=== PATIENT | female | born 2000 | race Two or more races ===

== ENCOUNTER 2022-10-24 04:08 | Emergency (ER) | payer MEDICAID ==
[~2022-10-24] VITALS: Ht 162.6 cm; Wt 62.1 kg
[2022-10-24 04:12] VITALS: BP 128/74
--- NOTE | 2022-10-24 04:16 | NUR ---
TO LOBBY FOLLOWING TRIAGE
[2022-10-24 06:20] VITALS: BP 128/74
--- NOTE | 2022-10-24 06:20 | NUR ---
Patient discharged with v/s stable. Written and verbal after care instructions given and explained. Patient verbalized understanding. Ambulatory with steady gait. All questions addressed prior to discharge. Advised to follow up with PMD.
== END 2022-10-24 06:20 | disposition home or self-care (01) ==
LOC: MED 04:08
DX: B07.0 Plantar wart (principal); J45.909 Unspecified asthma, uncomplicated
CPT/HCPCS: 99281

== ENCOUNTER 2022-12-17 10:31 | Emergency (ER) | payer MEDICAID ==
[~2022-12-17] VITALS: Ht 162.6 cm; Wt 72.6 kg
[2022-12-17 10:43] VITALS: BP 140/82
--- NOTE | 2022-12-17 10:45 | NUR ---
PT AMBULATED TO LOBBY BY BLS. PER EMS, PATIENT REQUESTING RELOCATION ASSISTANCE.
[2022-12-17 12:42] LABS: APPEARANCE,URINE CLEAR (CLEAR); BILIRUBIN,URINE NEGATIVE (NEGATIVE); BLOOD, URINE NEGATIVE (NEGATIVE); COLOR,URINE YELLOW (YELLOW); LEUKOCYTE ESTERASE ,URINE NEGATIVE (NEGATIVE); NITRITE, URINE NEGATIVE (NEGATIVE); UGLUCOSE NEGATIVE (NEGATIVE)
[2022-12-17] MEDS ORDERED: DOXY-487 PO (13:32)
[2022-12-17] MEDS ORDERED: TRAM-748 PO (13:33)
[2022-12-17] MEDS ORDERED: cefTRIAXone 500 MG VIAL ONE (13:48)
[2022-12-17] MEDS ORDERED: LIDOCAINE MPF 1% 5 ML ONE (13:48)
[2022-12-17] MEDS: cefTRIAXone 500 MG in LIDOCAINE MPF 1% 1 ML IM ONE (14:03)
--- NOTE | 2022-12-17 14:07 | NUR ---
CALLED MEDICAL COMMUNICATION SPECIALIST FOR ASSISTANCE WITH RESOURCES
--- NOTE | 2022-12-17 14:08 | NUR ---
AMBULATED TO TO VOID URINE WITH STEADY GAIT, NO COMPLAINTS OR SYMPTOMS
[2022-12-17 15:58] VITALS: BP 121/71
--- NOTE | 2022-12-17 16:00 | NUR ---
ACI GIVEN, RX DOXY AND ULTRAM EXPLAINED, QUESTIONS ANSWERED, PROVIDED UBER TO SHELBURN SYSTEM
== END 2022-12-17 15:58 | disposition home or self-care (01) ==
LOC: MED 10:31
DX: R10.2 Pelvic and perineal pain (principal); R30.0 Dysuria; J45.909 Unspecified asthma, uncomplicated; Z79.2 Long term (current) use of antibiotics; Z79.891 Long term (current) use of opiate analgesic
CPT/HCPCS: 81003; 81025; 96372; 99283; J0696; J2001